=== PATIENT | female | born 1965 | race Caucasian/White ===

== ENCOUNTER 2024-11-15 09:56 | Emergency (ER) | payer OTHER ==
[~2024-11-15] VITALS: Ht 162.6 cm; Wt 70.0 kg
[2024-11-15 10:23] VITALS: BP 133/81; PULSE 96; RESP 19; TEMP 98.9; O2SAT 98
[2024-11-15] MEDS: MAGNESIUM CITRATE [LEMON] 300 ML ORAL SOLUTION PO ONE (13:12)
== END 2024-11-15 14:12 | disposition home or self-care (01) ==
LOC: EMS 10:05
DX: K59.00 Constipation, unspecified (principal)
CPT/HCPCS: 74176; 99284; Z7502